=== PATIENT | female | born 1975 | race Caucasian/White ===

== ENCOUNTER 2017-08-12 11:23 | Outpatient (CLI) | payer OTHER | END 2017-08-12 11:30 | disposition home or self-care (01) | LOC: LAB 11:23 | DX: R50.9 Fever, unspecified (principal) ==

== ENCOUNTER → 2017-08-12 | Outpatient (CLI) | payer OTHER ==
[~2017-08-12] VITALS: Ht 152.4 cm; Wt 63.5 kg
[~2017-08-12] MED LIST: AVAPRO150 MG; COZAAR100 MG; FLEXERIL 10 MG PO; HYZAAR 100-121 UDTAB; INDERAL LA80 MG; TRAM1TAB98 PO
== END | disposition home or self-care (01) ==
LOC: PPHC 10:22
DX: B34.9 Viral infection, unspecified (principal)

== ENCOUNTER 2018-01-08 16:01 | Emergency (ER) | payer OTHER ==
[~2018-01-08] VITALS: Ht 170.2 cm; Wt 65.8 kg
== END 2018-01-08 16:53 | disposition home or self-care (01) ==
LOC: ER 16:01
DX: T65.891A Toxic effect of other specified substances, accidental (unintentional), initial encounter (principal); Z77.21 Contact with and (suspected) exposure to potentially hazardous body fluids; Y92.238 Other place in hospital as the place of occurrence of the external cause

== ENCOUNTER → 2018-02-14 06:27 | Outpatient (CLI) | payer OTHER | END | disposition home or self-care (01) | LOC: LAB 06:27 | DX: I10 Essential (primary) hypertension (principal); Z13.1 Encounter for screening for diabetes mellitus; Z12.11 Encounter for screening for malignant neoplasm of colon; M19.049 Primary osteoarthritis, unspecified hand; D50.8 Other iron deficiency anemias ==

== ENCOUNTER 2018-02-25 13:57 | Outpatient (CLI) | payer OTHER | END 2018-02-25 14:02 | disposition home or self-care (01) | LOC: MAMO-SONO 13:57 | DX: Z12.31 Encounter for screening mammogram for malignant neoplasm of breast (principal); N60.11 Diffuse cystic mastopathy of right breast; N60.12 Diffuse cystic mastopathy of left breast ==

== ENCOUNTER → 2018-06-24 | Outpatient (CLI) | payer OTHER | END | disposition home or self-care (01) | LOC: LAB 06:54 | DX: D50.8 Other iron deficiency anemias (principal) ==

== ENCOUNTER 2018-08-27 16:28 | Emergency (ER) | payer OTHER ==
[~2018-08-27] VITALS: Ht 170.2 cm; Wt 65.8 kg
[2018-08-27] MEDS ORDERED: LOSARTAN-HCTZ1 EACH (16:49)
== END 2018-08-27 18:41 | disposition home or self-care (01) ==
LOC: ER 16:28
DX: B34.9 Viral infection, unspecified (principal)

== ENCOUNTER 2018-09-01 14:44 | Outpatient (CLI) | payer OTHER ==
[~2018-09-01 14:44] MED LIST changes: +LOSARTAN-HCTZ1 EACH
== END 2018-09-01 14:54 | disposition home or self-care (01) ==
LOC: LAB 14:44
DX: J20.0 Acute bronchitis due to Mycoplasma pneumoniae (principal); J11.1 Influenza due to unidentified influenza virus with other respiratory manifestations

== ENCOUNTER 2018-11-18 16:29 | Outpatient (CLI) | payer OTHER | END 2018-11-18 16:35 | disposition home or self-care (01) | LOC: LAB 16:29 | DX: E03.8 Other specified hypothyroidism (principal); D50.8 Other iron deficiency anemias; M05.50 Rheumatoid polyneuropathy with rheumatoid arthritis of unspecified site; J11.1 Influenza due to unidentified influenza virus with other respiratory manifestations; A49.3 Mycoplasma infection, unspecified site; E78.2 Mixed hyperlipidemia; R00.2 Palpitations ==

== ENCOUNTER 2018-12-31 07:52 | Outpatient (CLI) | payer OTHER | END 2018-12-31 07:56 | disposition home or self-care (01) | LOC: NUCLEAR 07:52 | DX: R00.2 Palpitations (principal); I25.10 Atherosclerotic heart disease of native coronary artery without angina pectoris | CPT/HCPCS: 78452; 93017; A9500; 93306 ==

== ENCOUNTER → 2019-02-16 15:39 | Outpatient (CLI) | payer OTHER | END | disposition home or self-care (01) | LOC: LAB 15:39 | DX: D50.8 Other iron deficiency anemias (principal) ==

== ENCOUNTER 2019-03-10 12:07 | Outpatient (CLI) | payer OTHER | END 2019-03-10 17:00 | disposition home or self-care (01) | LOC: MAMO-SONO 12:07 | DX: N60.11 Diffuse cystic mastopathy of right breast (principal); N60.12 Diffuse cystic mastopathy of left breast ==

== ENCOUNTER 2019-05-27 07:24 | Emergency (ER) | payer OTHER ==
[~2019-05-27] VITALS: Ht 170.2 cm; Wt 65.8 kg
[2019-05-27] MEDS ORDERED: ZITHROMAX500 MG PO (11:07)
== END 2019-05-27 11:14 | disposition home or self-care (01) ==
LOC: ER 07:24
DX: J06.9 Acute upper respiratory infection, unspecified (principal)

== ENCOUNTER → 2019-06-16 17:08 | Outpatient (CLI) | payer OTHER ==
[~2019-06-16 17:08] MED LIST changes: +ZITHROMAX500 MG PO
== END | disposition home or self-care (01) ==
LOC: LAB 17:08
DX: J11.1 Influenza due to unidentified influenza virus with other respiratory manifestations (principal)

== ENCOUNTER 2019-08-05 13:39 | Outpatient (CLI) | payer OTHER | END 2019-08-05 13:48 | disposition home or self-care (01) | LOC: LAB 13:39 | DX: M06.4 Inflammatory polyarthropathy (principal); N18.9 Chronic kidney disease, unspecified ==

== ENCOUNTER 2019-08-28 21:32 | Emergency (ER) | payer OTHER ==
[~2019-08-28] VITALS: Ht 167.6 cm; Wt 66.7 kg
[2019-08-28] MEDS ORDERED: ZITHROMAX500 MG PO (23:29)
[2019-08-28] MEDS ORDERED: DOLOGEN CAPLET1 EACH PO (23:29)
== END 2019-08-28 23:28 | disposition home or self-care (01) ==
LOC: ER 21:32
DX: J06.9 Acute upper respiratory infection, unspecified (principal); B96.0 Mycoplasma pneumoniae [M. pneumoniae] as the cause of diseases classified elsewhere; M25.50 Pain in unspecified joint

== ENCOUNTER → 2019-09-15 14:18 | Outpatient (CLI) | payer OTHER ==
[~2019-09-15 14:18] MED LIST changes: +DOLOGEN CAPLET1 EACH PO
== END | disposition home or self-care (01) ==
LOC: LAB 14:18
DX: J11.1 Influenza due to unidentified influenza virus with other respiratory manifestations (principal)

== ENCOUNTER 2019-09-18 07:38 | Outpatient (CLI) | payer OTHER | END 2019-09-18 07:46 | disposition home or self-care (01) | LOC: LAB 07:38 | DX: J11.1 Influenza due to unidentified influenza virus with other respiratory manifestations (principal); J06.9 Acute upper respiratory infection, unspecified; B96.0 Mycoplasma pneumoniae [M. pneumoniae] as the cause of diseases classified elsewhere ==

== ENCOUNTER 2019-09-19 07:19 | Outpatient (CLI) | payer OTHER | END 2019-09-19 07:29 | disposition home or self-care (01) | LOC: LAB 07:19 | DX: R53.81 Other malaise (principal); M25.50 Pain in unspecified joint ==

== ENCOUNTER → 2019-11-11 16:35 | Outpatient (CLI) | payer OTHER | END | disposition home or self-care (01) | LOC: LAB 16:35 | PROVIDERS: ATTEND General Practice | DX: R07.0 Pain in throat (principal); Z20.828 Contact with and (suspected) exposure to other viral communicable diseases; R19.5 Other fecal abnormalities; J11.1 Influenza due to unidentified influenza virus with other respiratory manifestations ==

== ENCOUNTER → 2019-11-11 | Outpatient (CLI) | payer OTHER | END | disposition home or self-care (01) | LOC: LAB 06:30 | PROVIDERS: ATTEND Obstetrics & Gynecology | DX: D64.89 Other specified anemias (principal); B96.0 Mycoplasma pneumoniae [M. pneumoniae] as the cause of diseases classified elsewhere; N63.0 Unspecified lump in unspecified breast ==

== ENCOUNTER 2020-01-21 13:02 | Emergency (ER) | payer OTHER ==
[~2020-01-21] VITALS: Ht 170.2 cm; Wt 66.7 kg
== END 2020-01-21 18:06 | disposition home or self-care (01) ==
LOC: ER 13:02
DX: I51.89 Other ill-defined heart diseases (principal); Z03.818 Encounter for observation for suspected exposure to other biological agents ruled out; R07.89 Other chest pain

== ENCOUNTER 2020-02-11 07:15 | Outpatient (CLI) | payer OTHER | END 2020-02-11 11:12 | disposition home or self-care (01) | LOC: NUCLEAR 07:15 | PROVIDERS: ATTEND Internal Medicine Cardiovascular Disease | DX: I10 Essential (primary) hypertension (principal); R00.2 Palpitations | CPT/HCPCS: 78452; 93017; A9500 ==

== ENCOUNTER 2020-02-19 07:00 | Outpatient (CLI) | payer OTHER | END 2020-02-19 15:02 | disposition home or self-care (01) | LOC: PPH VACUNA 07:00 | DX: Z23 Encounter for immunization (principal) ==

== ENCOUNTER 2020-03-29 14:49 | Outpatient (CLI) | payer OTHER | END 2020-03-29 14:58 | disposition home or self-care (01) | LOC: LAB 14:49 | DX: J11.1 Influenza due to unidentified influenza virus with other respiratory manifestations (principal); R53.81 Other malaise; R09.81 Nasal congestion; D64.89 Other specified anemias; E78.2 Mixed hyperlipidemia; Z12.11 Encounter for screening for malignant neoplasm of colon; N39.0 Urinary tract infection, site not specified; E04.1 Nontoxic single thyroid nodule; E03.8 Other specified hypothyroidism; B97.89 Other viral agents as the cause of diseases classified elsewhere ==

== ENCOUNTER 2020-07-13 08:05 | Outpatient (CLI) | payer OTHER | END 2020-07-13 08:11 | disposition home or self-care (01) | LOC: LAB 08:05 | PROVIDERS: ATTEND Internal Medicine Hematology & Oncology | DX: D50.8 Other iron deficiency anemias (principal); D64.89 Other specified anemias; R10.9 Unspecified abdominal pain; E03.8 Other specified hypothyroidism; E78.49 Other hyperlipidemia; E55.9 Vitamin D deficiency, unspecified; E11.9 Type 2 diabetes mellitus without complications; R73.09 Other abnormal glucose; I10 Essential (primary) hypertension; R00.2 Palpitations; Z13.6 Encounter for screening for cardiovascular disorders ==

== ENCOUNTER 2020-07-14 07:59 | Outpatient (CLI) | payer OTHER | END 2020-07-14 08:12 | disposition home or self-care (01) | LOC: MAMO-SONO 07:59 | PROVIDERS: ATTEND Surgery | DX: N60.02 Solitary cyst of left breast (principal); N60.11 Diffuse cystic mastopathy of right breast; N60.12 Diffuse cystic mastopathy of left breast; N64.59 Other signs and symptoms in breast ==

== ENCOUNTER 2020-07-28 02:50 | Emergency (ER) | payer OTHER ==
[~2020-07-28] VITALS: Ht 170.2 cm; Wt 68.0 kg
[2020-07-28] MEDS ORDERED: CARDIZEM120 MG (03:21)
== END 2020-07-28 06:17 ==
LOC: ER 02:50 → CPU-OBS 02:51 → ER 06:17
DX: I16.0 Hypertensive urgency (principal); I10 Essential (primary) hypertension; R00.2 Palpitations; R07.89 Other chest pain
CPT/HCPCS: G0378; G0379; 93005

== ENCOUNTER 2020-09-29 09:03 | Emergency (ER) | payer OTHER ==
[~2020-09-29] VITALS: Ht 170.2 cm; Wt 68.0 kg
[~2020-09-29 09:03] MED LIST changes: +CARDIZEM120 MG
[2020-09-29] MEDS ORDERED: AVAPRO150 MG (09:21)
[2020-09-29] MEDS ORDERED: DOLOGESIC 500-1 EACH PO (14:50)
[2020-09-29] MEDS ORDERED: AIRBORNE EFFER1 EACH PO (14:50)
== END 2020-09-29 15:00 ==
LOC: ER 09:03
DX: B34.9 Viral infection, unspecified (principal); Z11.52 Encounter for screening for COVID-19

== ENCOUNTER 2020-12-07 16:37 | Outpatient (CLI) | payer OTHER ==
[~2020-12-07 16:37] MED LIST changes: +AIRBORNE EFFER1 EACH PO; +DOLOGESIC 500-1 EACH PO
== END 2020-12-07 18:00 | disposition home or self-care (01) ==
LOC: LAB 16:37
PROVIDERS: ATTEND Obstetrics & Gynecology
DX: D64.89 Other specified anemias (principal)

== ENCOUNTER 2020-12-11 08:27 | Emergency (ER) | payer OTHER ==
[~2020-12-11] VITALS: Ht 170.2 cm; Wt 68.0 kg
== END 2020-12-11 11:07 | disposition home or self-care (01) ==
LOC: ER 08:27
DX: B34.9 Viral infection, unspecified (principal); Z11.52 Encounter for screening for COVID-19

== ENCOUNTER 2021-01-20 15:02 | Emergency (ER) | payer OTHER ==
[~2021-01-20] VITALS: Ht 170.2 cm; Wt 68.0 kg
== END 2021-01-20 16:57 | disposition home or self-care (01) ==
LOC: ER 15:02
DX: M13.89 Other specified arthritis, multiple sites (principal); B96.0 Mycoplasma pneumoniae [M. pneumoniae] as the cause of diseases classified elsewhere

== ENCOUNTER 2021-02-28 11:21 | Outpatient (CLI) | payer OTHER | END 2021-02-28 12:21 | disposition home or self-care (01) | LOC: PPH VACUNA 11:21 | PROVIDERS: ATTEND Emergency Medicine Pediatric Emergency Medicine | DX: Z23 Encounter for immunization (principal) ==

== ENCOUNTER → 2021-04-21 06:41 | Outpatient (CLI) | payer OTHER | END | disposition home or self-care (01) | LOC: LAB 06:41 | PROVIDERS: ATTEND Obstetrics & Gynecology | DX: D50.0 Iron deficiency anemia secondary to blood loss (chronic) (principal) ==

== ENCOUNTER 2021-05-15 20:43 | Emergency (ER) | payer OTHER ==
[~2021-05-15] VITALS: Ht 170.2 cm; Wt 66.7 kg
[2021-05-15] MEDS ORDERED: PANADOL (22:10)
== END 2021-05-15 23:29 | disposition home or self-care (01) ==
LOC: ER 20:43 → EDBD 20:46 → ER 23:29
DX: M25.511 Pain in right shoulder (principal); M65.811 Other synovitis and tenosynovitis, right shoulder

== ENCOUNTER 2021-05-18 08:47 | Emergency (ER) | payer OTHER ==
[~2021-05-18] VITALS: Ht 170.2 cm; Wt 66.7 kg
[~2021-05-18 08:47] MED LIST changes: +PANADOL
[2021-05-18] MEDS ORDERED: PERCOGESIC EXT1 EACH (08:56)
[2021-05-18] MEDS ORDERED: ULTRAM50 MG (08:56)
== END 2021-05-18 09:31 | disposition home or self-care (01) ==
LOC: ER 08:47 → EDBD 08:51 → ER 08:51
DX: M25.551 Pain in right hip (principal)

== ENCOUNTER 2021-05-31 14:50 | Outpatient (CLI) | payer OTHER ==
[~2021-05-31 14:50] MED LIST changes: +PERCOGESIC EXT1 EACH; +ULTRAM50 MG
== END 2021-05-31 15:27 | disposition home or self-care (01) ==
LOC: SONOGRAMA 14:50
PROVIDERS: ATTEND Physical Medicine & Rehabilitation
DX: M75.31 Calcific tendinitis of right shoulder (principal)

== ENCOUNTER 2021-06-13 08:11 | Outpatient (CLI) | payer OTHER | END 2021-06-13 08:24 | disposition home or self-care (01) | LOC: SONOGRAMA 08:11 | PROVIDERS: ATTEND Obstetrics & Gynecology | DX: N83.291 Other ovarian cyst, right side (principal) ==

== ENCOUNTER 2021-06-15 15:31 | Outpatient (CLI) | payer OTHER | END 2021-06-15 15:35 | disposition home or self-care (01) | LOC: LAB 15:31 | PROVIDERS: ATTEND Student in an Organized Health Care Education/Training Program | DX: D50.8 Other iron deficiency anemias (principal); N93.8 Other specified abnormal uterine and vaginal bleeding ==

== ENCOUNTER 2021-07-31 16:19 | Outpatient (CLI) | payer OTHER | END 2021-07-31 16:22 | disposition home or self-care (01) | LOC: LAB 16:19 | PROVIDERS: ATTEND Obstetrics & Gynecology | DX: D64.9 Anemia, unspecified (principal) ==

== ENCOUNTER 2021-08-02 07:58 | Emergency (ER) | payer OTHER ==
[~2021-08-02] VITALS: Ht 170.2 cm; Wt 66.2 kg
[2021-08-02] MEDS ORDERED: DIURETICO (08:12)
== END 2021-08-02 11:02 | disposition home or self-care (01) ==
LOC: ER 07:58
DX: B34.9 Viral infection, unspecified (principal)

== ENCOUNTER 2021-08-16 08:21 | Outpatient (CLI) | payer OTHER ==
[~2021-08-16 08:21] MED LIST changes: +DIURETICO
== END 2021-08-16 15:23 | disposition home or self-care (01) ==
LOC: LAB 08:21
PROVIDERS: ATTEND Obstetrics & Gynecology
DX: N30.00 Acute cystitis without hematuria (principal)

== ENCOUNTER 2021-08-17 12:52 | Outpatient (CLI) | payer OTHER ==
[2021-08-18] MEDS ORDERED: HYDROCHLOROTH12.5 MG (16:07)
== END 2021-08-17 14:44 | disposition home or self-care (01) ==
LOC: LAB 12:52
PROVIDERS: ATTEND Obstetrics & Gynecology
DX: N30.00 Acute cystitis without hematuria (principal)

== ENCOUNTER 2021-08-17 13:29 | Outpatient (CLI) | payer OTHER ==
[2021-08-18] MEDS ORDERED: HYDROCHLOROTH12.5 MG (16:07)
== END 2021-08-17 14:11 | disposition home or self-care (01) ==
LOC: LAB 13:29
PROVIDERS: ATTEND Obstetrics & Gynecology
DX: R10.2 Pelvic and perineal pain (principal); I10 Essential (primary) hypertension

== ENCOUNTER 2021-08-18 15:23 | Emergency (ER) | payer OTHER ==
[~2021-08-18] VITALS: Ht 170.2 cm; Wt 65.3 kg
[2021-08-18] MEDS ORDERED: HYDROCHLOROTH12.5 MG (16:07)
== END 2021-08-18 21:49 | disposition home or self-care (01) ==
LOC: ER 15:23
DX: R10.9 Unspecified abdominal pain (principal)

== ENCOUNTER 2022-01-03 14:35 | Outpatient (CLI) | payer OTHER ==
[~2022-01-03 14:35] MED LIST changes: +HYDROCHLOROTH12.5 MG
== END 2022-01-03 14:41 | disposition home or self-care (01) ==
LOC: LAB 14:35
PROVIDERS: ATTEND Obstetrics & Gynecology
DX: D50.9 Iron deficiency anemia, unspecified (principal)

== ENCOUNTER 2022-02-08 08:00 | Outpatient (CLI) | payer OTHER | END 2022-02-08 08:05 | disposition home or self-care (01) | LOC: PPH VACUNA 08:00 | PROVIDERS: ATTEND Emergency Medicine Pediatric Emergency Medicine | DX: Z23 Encounter for immunization (principal) ==

== ENCOUNTER 2022-07-04 08:12 | Outpatient (CLI) | payer OTHER | END 2022-07-04 08:16 | disposition home or self-care (01) | LOC: LAB 08:12 | PROVIDERS: ATTEND Obstetrics & Gynecology | DX: D64.9 Anemia, unspecified (principal) ==

== ENCOUNTER → 2022-08-29 07:45 | Outpatient (CLI) | payer OTHER | END | disposition home or self-care (01) | LOC: LAB 07:45 | PROVIDERS: ATTEND Internal Medicine Hematology & Oncology | DX: D70.8 Other neutropenia (principal); D80.8 Other immunodeficiencies with predominantly antibody defects; M05.80 Other rheumatoid arthritis with rheumatoid factor of unspecified site; M32.8 Other forms of systemic lupus erythematosus; D58.8 Other specified hereditary hemolytic anemias ==

== ENCOUNTER 2022-09-24 14:57 | Outpatient (CLI) | payer OTHER | END 2022-09-24 15:03 | disposition home or self-care (01) | LOC: LAB 14:57 | PROVIDERS: ATTEND Internal Medicine Hematology & Oncology | DX: D70.8 Other neutropenia (principal); I77.6 Arteritis, unspecified; D50.8 Other iron deficiency anemias; C90.00 Multiple myeloma not having achieved remission; D47.2 Monoclonal gammopathy ==

== ENCOUNTER 2022-09-26 08:06 | Outpatient (CLI) | payer OTHER | END 2022-09-26 08:11 | disposition home or self-care (01) | LOC: RAD 08:06 | PROVIDERS: ATTEND Internal Medicine Gastroenterology | DX: M79.662 Pain in left lower leg (principal) ==

== ENCOUNTER 2022-10-22 11:09 | Emergency (ER) | payer OTHER ==
[~2022-10-22] VITALS: Ht 170.2 cm; Wt 63.5 kg
== END 2022-10-22 13:31 | disposition home or self-care (01) ==
LOC: ER 11:09
DX: R00.2 Palpitations (principal); I10 Essential (primary) hypertension; Z88.0 Allergy status to penicillin; Z88.6 Allergy status to analgesic agent

== ENCOUNTER 2023-01-10 14:46 | Emergency (ER) | payer OTHER ==
[~2023-01-10] VITALS: Ht 170.2 cm; Wt 65.8 kg
== END 2023-01-10 17:12 | disposition home or self-care (01) ==
LOC: ER 14:46
DX: B34.9 Viral infection, unspecified (principal); Z88.6 Allergy status to analgesic agent; Z88.0 Allergy status to penicillin

== ENCOUNTER 2023-02-01 06:38 | Outpatient (CLI) | payer OTHER | END 2023-02-01 06:47 | disposition home or self-care (01) | LOC: LAB 06:38 | PROVIDERS: ATTEND Internal Medicine Hematology & Oncology | DX: D50.8 Other iron deficiency anemias (principal); I11.9 Hypertensive heart disease without heart failure; C90.00 Multiple myeloma not having achieved remission; R74.01 Elevation of levels of liver transaminase levels; D80.8 Other immunodeficiencies with predominantly antibody defects; Z88.0 Allergy status to penicillin; Z88.6 Allergy status to analgesic agent ==

== ENCOUNTER 2023-02-08 09:00 | Outpatient (CLI) | payer OTHER | END 2023-02-08 09:10 | disposition home or self-care (01) | LOC: PPH VACUNA 09:00 | PROVIDERS: ATTEND Emergency Medicine Pediatric Emergency Medicine | DX: Z23 Encounter for immunization (principal) | CPT/HCPCS: 90686; G0008 ==

== ENCOUNTER 2023-03-26 15:23 | Outpatient (CLI) | payer OTHER | END 2023-03-26 15:27 | disposition home or self-care (01) | LOC: RAD 15:23 | DX: M54.50 Low back pain, unspecified (principal); M40.56 Lordosis, unspecified, lumbar region; M48.061 Spinal stenosis, lumbar region without neurogenic claudication ==

== ENCOUNTER 2023-04-23 23:32 | Emergency (ER) | payer OTHER ==
[~2023-04-23] VITALS: Ht 167.6 cm; Wt 68.0 kg
[2023-04-24] MEDS ORDERED: PROPRANOLOL HCL20 MG (00:34)
== END 2023-04-24 02:55 ==
LOC: ER 23:32
DX: I10 Essential (primary) hypertension (principal); Z88.0 Allergy status to penicillin; Z88.6 Allergy status to analgesic agent

== ENCOUNTER 2023-05-29 16:35 | Outpatient (CLI) | payer OTHER ==
[~2023-05-29 16:35] MED LIST changes: +PROPRANOLOL HCL20 MG
[2023-05-29 17:08] LABS: HEMATOCRIT 33.9 % (36.0-45.00); HEMOGLOBIN 11.1 g/dL (12.0-15.00); MEAN CORPUSCULAR HEMOGLOBIN 27.2 pg (27.00-32.0); MEAN CORPUSCULAR HGB CONC 32.8 g/dl (32.0-36.0); PLATELET COUNT 221 K/uL (150-450); RED BLOOD COUNT 4.09 M/uL (4.00-6.00); RED CELL DISTRIBUTION WIDTH 17.2 % (11.5-14.5)
== END 2023-05-29 16:38 | disposition home or self-care (01) ==
LOC: LAB 16:35
DX: D50.9 Iron deficiency anemia, unspecified (principal)

== ENCOUNTER 2023-07-28 22:17 | Emergency (ER) | payer OTHER ==
[~2023-07-28] VITALS: Ht 170.2 cm; Wt 68.0 kg
[2023-07-29] MEDS ORDERED: ACETAMINOPHEN 500 MG GEL..CAP PO STA (00:15)
[2023-07-29 00:55] LABS: HEMATOCRIT 35.3 % (36.0-45.00); HEMOGLOBIN 11.6 g/dL (12.0-15.00); MEAN CELL VOLUME 81.8 fL (80.00-100.00); MEAN CORPUSCULAR HEMOGLOBIN 26.9 pg (27.00-32.0); MEAN CORPUSCULAR HGB CONC 32.8 g/dl (32.0-36.0); PLATELET COUNT 201 K/uL (150-450); RED BLOOD COUNT 4.31 M/uL (4.00-6.00); RED CELL DISTRIBUTION WIDTH 16.3 % (11.5-14.5)
== END 2023-07-29 03:03 ==
LOC: ER 22:18
PROVIDERS: General Practice
DX: B34.9 Viral infection, unspecified (principal); Z88.0 Allergy status to penicillin; Z88.6 Allergy status to analgesic agent; I10 Essential (primary) hypertension; Z20.822 Contact with and (suspected) exposure to COVID-19

== ENCOUNTER → 2023-07-28 | Emergency (ER) | payer OTHER ==
[~2023-07-28] VITALS: Ht 170.2 cm; Wt 68.0 kg
== END | disposition left against medical advice (07) ==
LOC: ER 12:59
DX: Z53.21 Procedure and treatment not carried out due to patient leaving prior to being seen by health care provider (principal)

== ENCOUNTER 2023-12-30 13:28 | Outpatient (CLI) | payer OTHER | END 2023-12-30 13:35 | disposition home or self-care (01) | LOC: EKG 13:28 | PROVIDERS: ATTEND Specialist | DX: R00.2 Palpitations (principal) ==

== ENCOUNTER 2024-03-26 04:30 | Outpatient (CLI) | payer OTHER ==
[~2024-03-26 04:30] MED LIST changes: +METAXALONE800 MG PO
== END 2024-03-26 05:00 | disposition home or self-care (01) ==
LOC: PPH VACUNA 04:30
PROVIDERS: ATTEND Emergency Medicine Pediatric Emergency Medicine
DX: Z23 Encounter for immunization (principal)

== ENCOUNTER → 2024-05-12 06:12 | Outpatient (CLI) | payer OTHER | END | disposition home or self-care (01) | LOC: LAB 06:12 | PROVIDERS: ATTEND Internal Medicine Gastroenterology | DX: R19.7 Diarrhea, unspecified (principal) ==

== ENCOUNTER → 2024-05-15 | Outpatient (CLI) | payer OTHER | END | disposition home or self-care (01) | LOC: TOM 11:05 | PROVIDERS: ATTEND Internal Medicine Cardiovascular Disease | DX: R07.9 Chest pain, unspecified (principal); I10 Essential (primary) hypertension | CPT/HCPCS: 71275 ==

== ENCOUNTER 2024-06-15 07:39 | Outpatient (CLI) | payer OTHER | END 2024-06-15 07:45 | disposition home or self-care (01) | LOC: SONOGRAMA 07:39 | PROVIDERS: ATTEND Internal Medicine Gastroenterology | DX: R10.9 Unspecified abdominal pain (principal) ==

== ENCOUNTER 2024-06-19 15:35 | Outpatient (CLI) | payer OTHER | END 2024-06-19 15:46 | disposition home or self-care (01) | LOC: SONOGRAMA 15:35 | PROVIDERS: ATTEND Urology | DX: N20.0 Calculus of kidney (principal) ==

== ENCOUNTER 2024-06-30 14:30 | Outpatient (CLI) | payer OTHER ==
[2024-06-30 15:01] LABS: HEMATOCRIT 33.9 % (36.0-45.00); HEMOGLOBIN 11.2 g/dL (12.0-15.00); MEAN CELL VOLUME 84.9 fL (80.00-100.00); MEAN CORPUSCULAR HEMOGLOBIN 28.1 pg (27.00-32.0); MEAN CORPUSCULAR HGB CONC 33.1 g/dl (32.0-36.0); PLATELET COUNT 197 K/uL (150-450); RED BLOOD COUNT 3.99 M/uL (4.00-6.00); RED CELL DISTRIBUTION WIDTH 15.8 % (11.5-14.5)
== END 2024-06-30 14:33 | disposition home or self-care (01) ==
LOC: LAB 14:30
PROVIDERS: ATTEND Specialist
DX: J06.9 Acute upper respiratory infection, unspecified (principal)

== ENCOUNTER 2024-07-05 07:38 | Emergency (ER) | payer OTHER ==
[~2024-07-05] VITALS: Ht 167.6 cm; Wt 66.7 kg
[2024-07-05] MEDS ORDERED: IRBESARTAN-HCT1 EAC1 PO (07:50)
[2024-07-05 09:09] LABS: HEMATOCRIT 35.5 % (36.0-45.00); HEMOGLOBIN 11.8 g/dL (12.0-15.00); MEAN CELL VOLUME 84.7 fL (80.00-100.00); MEAN CORPUSCULAR HEMOGLOBIN 28.1 pg (27.00-32.0); MEAN CORPUSCULAR HGB CONC 33.2 g/dl (32.0-36.0); PH,URINE 5.5 (5.0-8.0); PLATELET COUNT 214 K/uL (150-450); RED BLOOD COUNT 4.19 M/uL (4.00-6.00); RED CELL DISTRIBUTION WIDTH 15.6 % (11.5-14.5); URINE APPEARANCE Clear; URINE BILIRRUBIN Negative (NEGATIVE); URINE BLOOD Negative; URINE COLOR Yellow; URINE GLUCOSE Negative (NEGATIVE); URINE KETONE Trace (NEGATIVE); URINE LEUKOCYTE Negative; URINE NITRATE Negative; URINE PROTEIN Negative (NEGATIVE)
[2024-07-05 09:13] LABS: URINE BACTERIA 226.3 uL (0.0-1933); URINE EPITHELIAL CELLS 16.2 uL (0.0-38.8); URINE RBC 4.8 uL (0.0-20.8); URINE WBC 5.8 uL (0.0-23.2)
[2024-07-05 09:29] LABS: CALCIUM 9.2 mg/dL (8.5-10.1); CREATININE SERUM 0.75 mg/dL (0.55-1.02); GFR 82.48; POTASSIUM 4.23 mEq/L (3.5-5.1)
== END 2024-07-05 10:31 | disposition home or self-care (01) ==
LOC: ER 07:38
PROVIDERS: General Practice
DX: B34.9 Viral infection, unspecified (principal); Z88.0 Allergy status to penicillin; Z88.6 Allergy status to analgesic agent; I10 Essential (primary) hypertension; Z20.822 Contact with and (suspected) exposure to COVID-19

== ENCOUNTER 2024-07-30 15:15 | Outpatient (CLI) | payer OTHER ==
[~2024-07-30 15:15] MED LIST changes: +IRBESARTAN-HCT1 EAC1 PO
[2024-07-30 15:55] LABS: HEMATOCRIT 34.8 % (36.0-45.00); HEMOGLOBIN 11.6 g/dL (12.0-15.00); MEAN CELL VOLUME 84.9 fL (80.00-100.00); MEAN CORPUSCULAR HEMOGLOBIN 28.2 pg (27.00-32.0); MEAN CORPUSCULAR HGB CONC 33.2 g/dl (32.0-36.0); PLATELET COUNT 210 K/uL (150-450); RED CELL DISTRIBUTION WIDTH 16.4 % (11.5-14.5)
== END 2024-07-30 15:18 | disposition home or self-care (01) ==
LOC: LAB 15:15
PROVIDERS: ATTEND Obstetrics & Gynecology
DX: D64.9 Anemia, unspecified (principal)

== ENCOUNTER 2024-08-25 13:32 | Outpatient (CLI) | payer OTHER | END 2024-08-25 13:42 | disposition home or self-care (01) | LOC: MAMO-SONO 13:32 | DX: N63.11 Unspecified lump in the right breast, upper outer quadrant (principal); N63.12 Unspecified lump in the right breast, upper inner quadrant ==

== ENCOUNTER 2024-12-01 15:42 | Outpatient (CLI) | payer OTHER ==
[2024-12-03 09:08] LABS: HEPATITIS A ANTIBODY IGG Positive (Negative); HEPATITIS B SURFACE ANTIBODY Reactive (.); HEPATITIS C VIRUS ANTIBODY Non Reactive (Non Reactive)
== END 2024-12-01 15:46 | disposition home or self-care (01) ==
LOC: LAB 15:42
DX: A64 Unspecified sexually transmitted disease (principal); B19.9 Unspecified viral hepatitis without hepatic coma

== ENCOUNTER 2024-12-22 09:47 | Emergency (ER) | payer OTHER ==
[~2024-12-22] VITALS: Ht 172.7 cm; Wt 68.0 kg
[2024-12-22 10:19] VITALS: BP 162/82; O2SAT 99
[2024-12-22] MEDS ORDERED: ACETAMINOPHEN 500 MG GEL..CAP PO ONE ×2 (10:45→10:55)
[2024-12-22] MEDS ORDERED: BACLOFEN10 MG PO (14:55)
[2024-12-22] MEDS ORDERED: TYLENOL ARTHRI650 MG PO (14:55)
== END 2024-12-22 16:20 | disposition home or self-care (01) ==
LOC: ER 09:47
DX: M54.50 Low back pain, unspecified (principal); I10 Essential (primary) hypertension; Z88.6 Allergy status to analgesic agent; Z88.0 Allergy status to penicillin

== ENCOUNTER 2025-04-02 14:00 | Outpatient (CLI) | payer OTHER ==
[~2025-04-02 14:00] MED LIST changes: +BACLOFEN10 MG PO; +TYLENOL ARTHRI650 MG PO
== END 2025-04-02 14:10 | disposition home or self-care (01) ==
LOC: PPH VACUNA 14:00
PROVIDERS: ATTEND Emergency Medicine Pediatric Emergency Medicine
DX: Z23 Encounter for immunization (principal)